=== PATIENT | female | born 2000 | race Two or more races ===

== ENCOUNTER 2020-03-15 18:49 | Emergency (ER) | payer OTHER ==
[~2020-03-15] VITALS: Ht 152.4 cm; Wt 47.6 kg
[2020-03-15] MEDS ORDERED: ZYRTEC10 M3 (19:16)
== END 2020-03-15 19:55 | disposition home or self-care (01) ==
LOC: ER 18:49
DX: S60.221A Contusion of right hand, initial encounter (principal); V43.52XA Car driver injured in collision with other type car in traffic accident, initial encounter; Y93.89 Activity, other specified; Y92.488 Other paved roadways as the place of occurrence of the external cause; Y99.8 Other external cause status